=== PATIENT | female | born 1985 | race Caucasian/White ===

== ENCOUNTER 2018-01-07 05:55 | Day surgery (SDC) | payer BC ==
[2018-01-07] MEDS ORDERED: LIDOCAINE 4% SOLUTION 50 ML BTL (07:49)
[2018-01-07] MEDS ORDERED: FENTAnyl 50 MCG/ML VIAL (08:14)
[2018-01-07] MEDS ORDERED: MIDAZOLAM 1 MG/ML 2 ML INJ ×2 (08:14)
== END 2018-01-07 10:44 | disposition home or self-care (01) ==
LOC: GIL 05:55
DX: K29.30 Chronic superficial gastritis without bleeding (principal)
CPT/HCPCS: 43239; 88305; 88312